=== PATIENT | female | born 1995 | race Asian ===

== ENCOUNTER 2017-04-18 09:03 | Emergency (ER) | payer BC ==
[~2017-04-18] VITALS: Ht 149.9 cm; Wt 47.6 kg
[2017-04-18] MEDS ORDERED: NKM (09:11)
[2017-04-18 09:13] VITALS: BP 123/82
[2017-04-18] MEDS ORDERED: Lidocaine 1% MPF 10mg/ml 5ml INJ ONE (09:30)
--- NOTE | 2017-04-18 11:04 | Emergency Room Report ---
History of Present Illness General Chief Complaint: Laceration Source: Patient Present Illness HPI This patient states that just prior to arrival she was using a knife to remove a pit from an avocado and her hand slipped and she cut her left thumb. She has no other injuries or complaints. She states that her tetanus shot is up-to- date with the last 4-5 years. Allergies: Coded Allergies: No Known Allergies (Unverified , 04/18/17) Patient History Past Medical History: none Past Surgical History: none Pertinent Family History: none Social History: Denies: alcohol use, drug use, smoking Last Menstrual Period: 04/15/2017 Immunizations: UTD Reviewed Nursing Documentation: PMH: Agreed, PSxH: Agreed Nursing Documentation-PMH Past Medical History: No Stated History Review of Systems All Other Systems: negative except mentioned in HPI Physical Exam Vital Signs Date Time Temp Pulse Resp B/P Pulse Ox O2 Delivery O2 Flow Rate FiO2 04/18/17 09:06 97.7 79 16 123/82 99 Room Air Sp02 EP Interpretation: reviewed, normal General Appearance: no apparent distress, alert, GCS 15, non-toxic Head: normocephalic, atraumatic Eyes: bilateral eye PERRL, bilateral eye normal inspection ENT: hearing grossly normal, normal pharynx, no angioedema, normal voice Neck: full range of motion, supple/symm/no masses Respiratory: no respiratory distress, no retraction, no accessory muscle use, speaking full sentences Rectal: deferred Musculoskeletal: back normal, gait/station normal, normal range of motion, other - L. thumb with 1.5cm laceration laterally. 5/5 MS, sensation intact throughout. Through skin. No tendon involvement. Neurologic: alert, oriented x3, responsive, motor strength/tone normal, sensory intact, speech normal Psychiatric: judgement/insight normal, memory normal, mood/affect normal, no suicidal/homicidal ideation Skin: warm/dry, well hydrated, other - See MSK exam Procedures Laceration/Wound Repair Laceration/Wound Repair : Consent: Verbal Wound Location: upper extremity Wound's Depth, Shape: superficial Wound Length (cm): 2 Wound Explored: clean Irrigated w/ Saline (ccs): 1000 Anesthesia: 1% Lidocaine Volume Anesthetic (ccs): 1 Wound Repaired With: sutures Suture Size/Type: 6:0, nylon Number of Sutures: 4 Layer Closure?: No Splint Applied?: Yes Type of Splint Applied: Extension Sling Applied?: No Patient Tolerated: Well Complications: None Medical Decision Making Diagnostic Impression: Primary Impression: Laceration of thumb ER Course This patient has a superficial laceration of her left thumb. There is no evidence of tendon involvement. The wound was irrigated and repaired. See my procedure note. The patient was given wound care precautions and followup instructions her sutures removed. I will place the patient on a course of prophylactic antibiotics given the location. Last Vital Signs Date Time Temp Pulse Resp B/P Pulse Ox O2 Delivery O2 Flow Rate FiO2 04/18/17 09:13 97.7 69 16 123/82 99 Room Air Status: improved Disposition: HOME, SELF-CARE Condition: Improved Referrals: NOT CHOSEN IPA/,REFERRING (PCP) Patient Instructions: Laceration Care, Adult CANDELARIO BRAY D.O. Apr 18, 2017 11:04
[2017-04-18] MEDS ORDERED: KEFLEX500 MG ORAL (11:05)
[2017-04-18 11:09] VITALS: BP 120/70
[2017-04-18 11:10] VITALS: BP 120/70
== END 2017-04-18 11:10 | disposition home or self-care (01) ==
LOC: EMR 09:25
DX: S61.012A Laceration without foreign body of left thumb without damage to nail, initial encounter (principal); W26.0XXA Contact with knife, initial encounter; Y93.9 Activity, unspecified; Y92.9 Unspecified place or not applicable